=== PATIENT | female | born 1960 | race African-American/Black ===

== ENCOUNTER → 2017-04-17 | Outpatient (CLI) | payer OTHER ==
[~2017-04-17] MED LIST: ALBUTEROL 0.5ML INH; BACTRIM DS TABL1 TA1 PO; CIPRO PO; CYMBALTA PO; ESTROVEN; KEFLEX; LORTAB 5/500 TA1 TA2 PO; PAXIL; PHENTERMINE; PREMARIN; PRILOSEC; PRIMROSE; RONDEC-DM SYRU120 ML PO; VOLTAREN50 MG PO; ZITHROMAX PO
--- NOTE | ~2017-04-17 | CR151 ---
[facility] A Service of [facility] RADIOLOGY TEXT RESULTS PATIENT: YULISSA VELAZQUEZ LOCATION: [facility] : 56 UNIT #: [id number] AGE: [address]: PAPITO CHANDRA SEX: F ORDER DR: [id number] [facility] [address] [place], [place] [address] [id number] O MR#: [id number] Acc #: [id number] NAME: YULISSA VELAZQUEZ : 1960 SEX: F STUDY DATE/TIME: 04/17/2017 15:02 UNIT: [facility] ROOM: STUDY DESCRIPTION: CR Hip Min 2 Views Rt Attending Physician: Ghassan Garcia Referring Physician: Ghassan Garcia Ordering Physician: Ghassan Garcia Primary Care Physician: Inna Vaz M.D. MEDICAL IMAGING REPORT This report is preliminary unless electronic signature is present EXAM Right hip, 04/17/2017 HISTORY 57-year-old female with right hip pain for 2 weeks. No specific injury. COMPARISON None. FINDINGS 3 views of the right hip demonstrate no acute fracture or dislocation. Joint spaces are within normal limits. Bony pelvis, sacrum, and SI joints appear intact. Vascular calcifications. IMPRESSION 1. No acute fracture or dislocation. 2. Vascular calcification. Dictated by... Anselmo Mendieta M.D. THIS IS AN ELECTRONICALLY VERIFIED REPORT Anselmo Mendieta M.D. at 04/18/2017 9:01 AM GATO/leo TD: 04/18/2017 04:01 JOB #: [id number] MEDICAL IMAGING REPORT Page 1 of 1 COPY
== END | disposition home or self-care (01) ==
LOC: CRAD 14:52
DX: M25.551 Pain in right hip (principal); I70.90 Unspecified atherosclerosis
CPT/HCPCS: 73502

== ENCOUNTER → 2017-04-17 | Outpatient (CLI) | payer OTHER ==
--- NOTE | ~2017-04-17 | US5 ---
[facility] A Service of [facility] / [facility] RADIOLOGY TEXT RESULTS PATIENT: YULISSA VELAZQUEZ LOCATION: [facility] : 56 UNIT #: [id number] AGE: [address]: COLTEN HARDIN SEX: F ORDER DR: [id number] [facility] [address] [place], [place] [address] [id number] O MR#: [id number] Acc #: [id number] NAME: YULISSA VELAZQUEZ : 1960 SEX: F STUDY DATE/TIME: 04/17/2017 10:19 UNIT: [facility] ROOM: STUDY DESCRIPTION: US Abdominal Complete Attending Physician: Colten Hardin Aprn Referring Physician: Colten Hardin Aprn Ordering Physician: Physician Non-Staff Primary Care Physician: Inna Vaz M.D. MEDICAL IMAGING REPORT This report is preliminary unless electronic signature is present EXAM Abdominal ultrasound INDICATION Hepatitis C. Patient has undergone treatment. This is a followup examination. Comparison made to prior exam from September 26, 2016 TECHNIQUE Hanley-scale, color Doppler and spectral Doppler waveform analysis was performed through the abdomen. FINDINGS Pancreas is not well seen. The liver is enlarged measuring up to 16.5 cm craniocaudal dimensions. No obvious focal hepatic lesions are seen although this is a technically limited study. No intra- or extrahepatic biliary dilatation is identified. The right kidney is normal in appearance. No solid or cystic renal masses are seen and there is no hydronephrosis. Images of the left kidney are essentially nondiagnostic. Spleen measures within normal size limits and I do not see any stones or sludge within the gallbladder. Abdominal aorta measures within normal size limits. IMPRESSION Extremely technically limited examination. Images of the pancreas and left kidney are essentially nondiagnostic. I do not see any obvious focal hepatic lesions within the visualized segments of the liver. No definite acute abnormality is seen. [facility] A Service [facility] RADIOLOGY TEXT RESULTS PATIENT: YULISSA VELAZQUEZ LOCATION: [facility] : 56 UNIT #: [id number] AGE: [address]: COLTEN HARDIN SEX: F ORDER DR: Dictated by... Stephani Jay M.D. THIS IS AN ELECTRONICALLY VERIFIED REPORT Stephani Jay M.D. at 04/18/2017 5:42 PM AFF/ljluis TD: 04/17/2017 23:52 JOB #: [id number] MEDICAL IMAGING REPORT Page 1 of 1 COPY
== END | disposition home or self-care (01) ==
LOC: CGUS 04-03 10:30
DX: B18.2 Chronic viral hepatitis C (principal)
CPT/HCPCS: 73502; 76700